=== PATIENT | male | born 1965 | race Caucasian/White ===

== ENCOUNTER → 2016-05-30 | Outpatient (CLI) | payer OTHER | LOC: RAD 09:23 | PROVIDERS: ATTEND Family Medicine | DX: R79.89 Other specified abnormal findings of blood chemistry (principal); R60.0 Localized edema | CPT/HCPCS: 93970 ==

== ENCOUNTER → 2016-07-01 | Outpatient (CLI) | payer OTHER | LOC: RAD 12:24 | PROVIDERS: ATTEND Family Medicine | DX: N45.1 Epididymitis (principal); N50.3 Cyst of epididymis | CPT/HCPCS: 76870 ==